=== PATIENT | male | born 1955 | race Caucasian/White ===

== ENCOUNTER 2016-05-26 14:51 | Emergency (ER) | payer BC ==
[~2016-05-26 14:51] MED LIST: BP MED; CIPRO250 MG PO; DIOVAN HCT 1601 EACH PO; LANTUS100 U/ML INJ; LORTAB 10-5001 EACH PO; LORTAB 5/500 TA1 TA1 PO; MEDROL DOSEPAK4 MG DOB; NEXIUM PO; NOVOLIN R100 U/ML INJ; NOVOLOG100 U/M2; OXAPROZIN600 MG PO; PROTONIX PO; ROBAXIN500 MG PO; ZETIA PO; ZOCOR PO
== END 2016-05-26 15:09 | disposition home or self-care (01) ==
LOC: CED 14:51
DX: M54.5 Low back pain (principal); E11.9 Type 2 diabetes mellitus without complications; I10 Essential (primary) hypertension; K21.9 Gastro-esophageal reflux disease without esophagitis; F17.200 Nicotine dependence, unspecified, uncomplicated
CPT/HCPCS: 99283